=== PATIENT | female | born 1945 | race Caucasian/White ===

== ENCOUNTER → 2017-04-21 18:27 | Outpatient (CLI) | payer MEDICARE ==
[2012-01-20 13:29] VITALS: BMI 38.0
[2017-04-21 18:49] LABS: BASOPHILS 0.4 % (0-2); EOSINOPHILS 2.3 % (0-7); HEMATOCRIT 38.2 % (36.0-48.0); HEMOGLOBIN 11.8 g/dL (12-16); IMMATURE GRANULOCYTES 0.1 % (0-5); LYMPHOCYTES 23.1 % (15-50); MCH 30.6 pg (26.0-34.0); MCHC 30.9 g/dL (31.0-37.0); MCV 99.2 fL (80.0-100.0); MEAN PLATELET VOLUME 11.6 fL (7.4-10.4); MONOCYTES 6.2 % (2-11); NEUTROPHILS 67.9 % (40-80); PLATELET COUNT 262 10x3/uL (130-400); RBC 3.85 10x6/uL (4.00-5.40); RDW 15.4 % (11.5-14.5)
== END | disposition home or self-care (01) ==
LOC: D.LABREF 18:27
PROVIDERS: Family Medicine
DX: I10 Essential (primary) hypertension (principal)